=== PATIENT | male | born 1955 | race Caucasian/White ===

== ENCOUNTER 2016-10-13 07:01 | Outpatient (CLI) | payer MEDICAID ==
[~2016-10-13] VITALS: Ht 185.4 cm; Wt 126.2 kg
--- NOTE | ~2016-10-13 | OR ---
PATIENT'S NAME: WANDA CALDERÓN [facility] AGE: 60 Y [address] ROOM: [place] [id number] LOCATION: GPCU ADMIT DATE: 10/13/2016 OR/Procedure Report DISCHARGE DATE: 10/13/2016 FAMILY PHYSICIAN: AYESHA MANUEL ATTENDING PHYSICIAN: Boby Carlisle SURGEON: Boby Carlisle MD USER SUPPORT SPECIALIST: DATE OF PROCEDURE: 10/13/2016 Referring is myself. INDICATIONS: Atrial fibrillation refractory to antiarrhythmic drug therapy. PROCEDURE: Mr. Calderón was brought to the preoperative suite in the fasting state. Prepped and draped in normal manner. Patches placed in AP dimension. Next, propofol was administered for MAC anesthesia through a nurse highway engineer. A total 150 mg propofol was administered. Once adequate levels of sedation were obtained. 200 joules synchronized therapy was delivered with persistence of atrial fibrillation, therefore 300 and ultimately 360 joules were delivered again with persistence of atrial fibrillation. CONCLUSION: 1. Unsuccessful cardioversion with refractory atrial fibrillation. 2. The patient will be seen in my office later this afternoon. I would like to thank Paresh Amaya for the opportunity to participate in the care of Mr. Calderón. BOBY CARLISLE MD DJM/modl /[id number] CC: ADARSH Coy d: 10/19/16 1551 t: 10/27/16 1034, OPERATIVE SUMMARY
[~2016-10-13 07:01] MED LIST: BETAPACE (GENER80 MG PO; BUMEX1 MG PO; COLCRYS0.6 MG PO; KEFLEX500 MG PO; LANOXIN250 MCG PO; LOPRESSOR50 MG PO; MYCOSTATIN(NYST15 GM TOP; PRADAXA150 MG PO; PRILOSEC20 MG PO; TYLENOL325 MG PO; XARELTO20 MG PO; ZESTRIL2.5 MG PO
== END 2016-10-13 09:24 | disposition disaster alternative care site (69) ==
LOC: GPOC 07:01 → GPCU 07:01 → GPOC 07:30
PROC: 5A2204Z Restoration of Cardiac Rhythm, Single (ICD-10-PCS; principal; 2016-10-13)
DX: I48.1 Persistent atrial fibrillation (principal); Z79.01 Long term (current) use of anticoagulants; I42.0 Dilated cardiomyopathy; I10 Essential (primary) hypertension; G47.10 Hypersomnia, unspecified; Z79.899 Other long term (current) drug therapy; I25.10 Atherosclerotic heart disease of native coronary artery without angina pectoris; M10.9 Gout, unspecified; E66.9 Obesity, unspecified; Z87.891 Personal history of nicotine dependence
CPT/HCPCS: J2001; J7030